=== PATIENT | female | born 1945 | race African-American/Black ===

== ENCOUNTER 2017-06-22 00:18 | Inpatient (IN) | payer MEDICARE, MEDICAID ==
[~2017-06-22] VITALS: Ht 167.6 cm; Wt 98.9 kg
[~2017-06-22 00:18] MED LIST: ALPR0.5T4; AMIT-188; AMLO10TA4; CALC600T2; GABA-529; LIP40; METH4TAB; ROPI0.252; TRAM50TA73
[2017-06-22] MEDS: MAGNESIUM/ALUMINUM HYDROXIDE/SIMETHICONE 30ML UDC PO NR (02:49)
[2017-06-22] MEDS: NITROGLYCERIN OINT 1GM/INCH UDPKT TD NR (02:49)
[2017-06-22 02:50] LABS: BASOPHILS % 0.8 % (0.0-2.0); EOSINOPHILS % 1.1 % (0.0-5.0); HEMATOCRIT. 30.1 % (36.0-48.0); HEMOGLOBIN. 10.2 g/dL (12.0-16.0); MEAN CORPUSCULAR HEMOGLOBIN 29.9 pg (28.0-32.0); MEAN CORPUSCULAR VOLUME 88.5 fL (81.0-99.0); MEAN PLATELET VOLUME 6.8 fl (7.4-10.4); MONOCYTES % 5.1 % (2.0-8.0); PLATELET 230 x1000/uL (130-400); RED CELL DISTRIBUTION WIDTH 14.5 % (11.6-14.6)
[2017-06-22 03:20] LABS: CARBON DIOXIDE 24 mEq/L (21-32); CHLORIDE 109 mEq/L (98-107); TROPONIN I < 0.02 ng/mL (0.00-0.04)
[2017-06-22 09:00] VITALS: BP 150/77
[2017-06-22 09:10] VITALS: BP 150/77
[2017-06-22] MEDS ORDERED: ROPI0.5T PO (09:52)
[2017-06-22] MEDS ORDERED: OMEP20CA10 PO (09:52)
[2017-06-22] MEDS ORDERED: FURO20TA4 PO (09:52)
[2017-06-22] MEDS ORDERED: SODI15OR4 PO (09:52)
[2017-06-22] MEDS ORDERED: DOCU-150 PO (09:52)
[2017-06-22] MEDS ORDERED: AMIT75TA2 PO (09:52)
[2017-06-22] MEDS ORDERED: GABA-533 PO (09:52)
[2017-06-22] MEDS ORDERED: THIO300C PO (09:52)
[2017-06-22] MEDS ORDERED: METH4TAB17 PO (09:52)
[2017-06-22] MEDS ORDERED: NAPR-681 PO (09:52)
[2017-06-22] MEDS ORDERED: HYDR-4001 PO (09:52)
[2017-06-22] MEDS ORDERED: BACL-141 PO (09:52)
[2017-06-22] MEDS ORDERED: SIMV10TA6 PO (09:52)
[2017-06-22] MEDS ORDERED: AMLO10TA80 PO (09:52)
[2017-06-22] MEDS ORDERED: ONDANSETRON HCL 4MG/2ML VIAL IV PRN (10:45)
[2017-06-22] MEDS ORDERED: ENOXAPARIN 30MG/0.3ML SYR SUBCUT SCH (11:00)
[2017-06-22] MEDS: ENOXAPARIN 40MG/0.4ML SYR SUBCUT SCH (11:15)
[2017-06-22] MEDS: ASPIRIN 81MG TABLET PO SCH (11:16)
[2017-06-22] MEDS: HYDROCODONE/ACETAMINOPHEN 5/325MG TABLET PO PRN ×3 (11:17→23:30)
[2017-06-22 12:16] VITALS: BP 127/78
[2017-06-22] MEDS ORDERED: REGADENOSON 0.4 MG/5 ML IV NR (13:15)
[2017-06-22 15:24] LABS: CREATINE KINASE 50 IU/L (26-192); CREATINE KINASE MB FRACTION < 0.5 ng/mL (0.5-3.6); HDL CHOLESTEROL 49 mg/dL (40-59); LDL CHOLESTEROL 130 mg/dL (5-100); TROPONIN I < 0.02 ng/mL (0.00-0.04)
[2017-06-22 16:18] VITALS: BP 136/73
[2017-06-22 20:00] VITALS: BP 105/67
[2017-06-22] MEDS: AMLODIPINE 5MG TABLET PO SCH (21:00)
[2017-06-22] MEDS ORDERED: ATORVASTATIN CALCIUM 10MG TABLET PO SCH (21:00)
[2017-06-22] MEDS: PANTOPRAZOLE 40MG DR TABLET PO SCH (21:37)
[2017-06-22 23:28] VITALS: BP 116/69
[2017-06-23 00:48] VITALS: BP 138/81
[2017-06-23 04:00] VITALS: BP 153/85
[2017-06-23 04:02] LABS: CLARITY URINE CLEAR (CLEAR); COLOR URINE YELLOW (YELLOW); GLUCOSE URINE NEGATIVE (NEGATIVE); KETONES URINE NEGATIVE (NEGATIVE); LEUKOCYTE ESTERASE URINE NEGATIVE (NEGATIVE); NITRITE URINE NEGATIVE (NEGATIVE); OCCULT BLOOD URINE NEGATIVE (NEGATIVE); PH URINE 5.5 (4.5-8.0); PROTEIN URINE NEGATIVE (NEGATIVE); SPECIFIC GRAVITY URINE 1.012 (1.005-1.030); UROBILINOGEN URINE 0.2 E.U./dL (0.2-1.0)
[2017-06-23] MEDS: PANTOPRAZOLE 40MG DR TABLET PO SCH (07:20)
[2017-06-23 07:40] LABS: BASOPHILS % 0.8 % (0.0-2.0); EOSINOPHILS % 2.3 % (0.0-5.0); HEMATOCRIT. 32.4 % (36.0-48.0); HEMOGLOBIN. 10.9 g/dL (12.0-16.0); MEAN CORPUSCULAR VOLUME 89.5 fL (81.0-99.0); MEAN PLATELET VOLUME 7.3 fl (7.4-10.4); MONOCYTES % 9.7 % (2.0-8.0); NEUTROPHILS % 66.2 % (40.0-76.0); PLATELET 242 x1000/uL (130-400); RED BLOOD CELL COUNT 3.62 mill/uL (4.2-5.4); RED CELL DISTRIBUTION WIDTH 14.6 % (11.6-14.6)
[2017-06-23 08:00] VITALS: BP 132/77
[2017-06-23] MEDS: ASPIRIN 81MG TABLET PO SCH (08:41)
[2017-06-23] MEDS: AMLODIPINE 5MG TABLET PO SCH (08:41)
[2017-06-23 08:56] LABS: CARBON DIOXIDE 26 mEq/L (21-32); CHLORIDE 107 mEq/L (98-107); TROPONIN I < 0.02 ng/mL (0.00-0.04)
[2017-06-23] MEDS ORDERED: ENOXAPARIN 40MG/0.4ML SYR SUBCUT SCH (09:00)
[2017-06-23] MEDS: ENOXAPARIN 40MG/0.4ML SYR SUBCUT SCH (09:00)
[2017-06-23] MEDS ORDERED: SODIUM POLYSTYRENE SULFONATE 15 G/60 ML BOT PO NR (09:45)
[2017-06-23 11:41] VITALS: BP 132/86
[2017-06-23] MEDS ORDERED: ACETAMINOPHEN 325MG TABLET PO PRN (13:15)
[2017-06-23 15:20] VITALS: BP 142/84
[2017-06-23 15:27] VITALS: BP 142/84
== END 2017-06-23 16:05 | disposition home or self-care (01) | DRG 206 ==
LOC: ER 00:18 → 6WST 06:19 → ENRESERV 07:11 → EDBEDREQ 08:21
PROVIDERS: ADMIT Hospitalist; ATTEND Hospitalist
DX: M94.0 Chondrocostal junction syndrome [Tietze] (principal); N17.9 Acute kidney failure, unspecified; E87.5 Hyperkalemia; M32.9 Systemic lupus erythematosus, unspecified; E88.09 Other disorders of plasma-protein metabolism, not elsewhere classified; N18.3 Chronic kidney disease, stage 3 (moderate); I25.10 Atherosclerotic heart disease of native coronary artery without angina pectoris; K20.9 Esophagitis, unspecified; E78.00 Pure hypercholesterolemia, unspecified; I13.10 Hypertensive heart and chronic kidney disease without heart failure, with stage 1 through stage 4 chronic kidney disease, or unspecified chronic kidney disease; E78.5 Hyperlipidemia, unspecified; M06.9 Rheumatoid arthritis, unspecified; K21.0 Gastro-esophageal reflux disease with esophagitis; T38.0X5A Adverse effect of glucocorticoids and synthetic analogues, initial encounter; T39.015A Adverse effect of aspirin, initial encounter; Y92.89 Other specified places as the place of occurrence of the external cause; I25.2 Old myocardial infarction; Z85.3 Personal history of malignant neoplasm of breast; Z90.710 Acquired absence of both cervix and uterus; Z87.891 Personal history of nicotine dependence; Z92.21 Personal history of antineoplastic chemotherapy; Z92.3 Personal history of irradiation; Z80.3 Family history of malignant neoplasm of breast; Z80.8 Family history of malignant neoplasm of other organs or systems
CPT/HCPCS: 36415; 71010; 78452; 80048; 80053; 80061; 81003; 82550; 82553; 83880; 84484; 85025; 93005; 93306; 93970; 99285; A9500; J1650

== ENCOUNTER 2019-04-04 06:48 | Emergency (ER) | payer MEDICARE, MEDICAID ==
[~2019-04-04] VITALS: Ht 167.6 cm; Wt 91.0 kg
[~2019-04-04 06:48] MED LIST changes: -ALPR0.5T4; -AMIT-188; -AMLO10TA4; +AMLO5TAB4 MT; +ASPI-1393 MT; +ATOR10TA MT; -CALC600T2; +DOCU-150 PO; -GABA-529; -LIP40; -METH4TAB; +OMEP20CA5 PO; -ROPI0.252; +SIMV10TA6 PO; -TRAM50TA73
[2019-04-04] MEDS ORDERED: FLUTICASONE PROPIONATE 50MCG/SPRAY BOTTLE BOTHNSTRLS STA (07:08)
[2019-04-04 09:23] VITALS: BP 214/77
== END 2019-04-04 09:32 | disposition home or self-care (01) ==
LOC: ER 06:48
DX: R09.81 Nasal congestion (principal); I11.9 Hypertensive heart disease without heart failure; G43.909 Migraine, unspecified, not intractable, without status migrainosus; E78.00 Pure hypercholesterolemia, unspecified; Z90.710 Acquired absence of both cervix and uterus; Z79.82 Long term (current) use of aspirin
CPT/HCPCS: 93005; 99283

== ENCOUNTER 2020-08-18 16:44 | Inpatient (IN) | payer MEDICARE, MEDICAID ==
[~2020-08-18] VITALS: Ht 167.6 cm; Wt 75.6 kg
[~2020-08-18 16:44] MED LIST changes: -ASPI-1393 MT; +ASPI-1497 MT; +OMEP20CA14 PO; -OMEP20CA5 PO; -SIMV10TA6 PO; +SIMV10TA97 PO
[2020-08-18] MEDS ORDERED: SODIUM CHLORIDE 0.9% 1,000 ML IV ONE ×2 (18:15→21:45)
[2020-08-18] MEDS ORDERED: ONDANSETRON HCL 4MG/2ML INJ IV STA (18:15)
[2020-08-18] MEDS ORDERED: PIPERACILLIN/TAZ 3.375G PREMIX 50 ML IV ONE (18:15)
[2020-08-18] MEDS ORDERED: VANCOMYCIN 1 G PREMIX 200 ML IV ONE (18:15)
[2020-08-18] MEDS ORDERED: MORPHINE SULFATE 4 MG/ML CPJ (NOT FOR IM USE) IV STA (18:15)
[2020-08-18 21:01] LABS: BASOPHILS % 1.3 % (0.0-2.0); EOSINOPHILS % 4.6 % (0.0-5.0); HEMATOCRIT. 30.4 % (36.0-48.0); HEMOGLOBIN. 10.1 g/dL (12.0-16.0); LYMPHOCYTES % 16.5 % (20.0-50.0); MEAN CORPUSCULAR HEMOGLOBIN 30.8 pg (28.0-32.0); MEAN CORPUSCULAR VOLUME 92.3 fL (81.0-99.0); MEAN PLATELET VOLUME 7.1 fl (7.4-10.4); MONOCYTES % 7.3 % (2.0-8.0); NEUTROPHILS % 70.3 % (40.0-76.0); PLATELET 419 x1000/uL (130-400); RED BLOOD CELL COUNT 3.29 mill/uL (4.2-5.4); RED CELL DISTRIBUTION WIDTH 15.6 % (11.6-14.6)
[2020-08-18 21:09] LABS: CHLORIDE 104 mEq/L (98-107)
[2020-08-18] MEDS ORDERED: DIPHENHYDRAMINE 50MG/ML VIAL IV PRN (23:30)
[2020-08-18] MEDS ORDERED: ONDANSETRON HCL 4MG/2ML INJ IV PRN (23:30)
[2020-08-18] MEDS ORDERED: DOCUSATE SODIUM 100MG CAPSULE PO PRN (23:30)
[2020-08-18] MEDS ORDERED: HYDROCODONE/APAP 7.5/325MG 1 TAB TABLET PO PRN (23:30)
[2020-08-18] MEDS ORDERED: GUAIFENESIN 200MG/10ML SUGAR FREE UDC PO PRN (23:30)
[2020-08-19] VITALS (8 sets, daily range): BP systolic 116–177; BP diastolic 69–84
[2020-08-19] MEDS ORDERED: SODIUM CHLORIDE 0.45% 1,000 ML IV SCH (00:30)
[2020-08-19] MEDS ORDERED: CEFTRIAXONE 1 G PREMIX 50 ML IV NR (00:30)
[2020-08-19] MEDS ORDERED: METRONIDAZOLE 500 MG PREMIX 100 ML IV SCH ×2 (02:00→12:00)
[2020-08-19] MEDS: ENOXAPARIN 30MG/0.3ML SYR SUBCUT SCH (04:00)
[2020-08-19] MEDS: AMLODIPINE 10MG TABLET PO SCH (09:00)
[2020-08-19] MEDS ORDERED: CLONIDINE 0.1MG TABLET PO PRN (09:00)
[2020-08-19] MEDS: NITROGLYCERIN OINT 1GM/INCH UDPKT TD SCH (11:00)
[2020-08-19 13:09] LABS: HEMATOCRIT. 28.1 % (36.0-48.0); HEMOGLOBIN. 9.3 g/dL (12.0-16.0); MEAN CORPUSCULAR HEMOGLOBIN 30.9 pg (28.0-32.0); MEAN CORPUSCULAR VOLUME 93.3 fL (81.0-99.0); RED BLOOD CELL COUNT 3.02 mill/uL (4.2-5.4); RED CELL DISTRIBUTION WIDTH 16.1 % (11.6-14.6)
[2020-08-19 13:19] LABS: CHLORIDE 106 mEq/L (98-107)
[2020-08-19] MEDS ORDERED: GABA-529 PO (13:24)
[2020-08-19] MEDS ORDERED: METH4TAB PO (13:26)
[2020-08-19 13:28] LABS: LDL CHOLESTEROL 179 mg/dL (5-100)
[2020-08-19] MEDS ORDERED: AMIT25TA9 MT (13:28)
[2020-08-19 13:29] LABS: HDL CHOLESTEROL 15 mg/dL (40-59)
[2020-08-19] MEDS ORDERED: METO-385 PO (13:30)
[2020-08-19] MEDS ORDERED: ASPI-1497 PO (13:31)
[2020-08-19] MEDS ORDERED: SIMV-43 PO (13:31)
[2020-08-19] MEDS ORDERED: ALLO100T PO (13:32)
[2020-08-19] MEDS ORDERED: FURO20TA4 PO (13:32)
[2020-08-19] MEDS ORDERED: OMEP20CA14 PO (13:33)
[2020-08-19] MEDS ORDERED: IBUP-2029 PO (13:34)
[2020-08-19] MEDS ORDERED: ESOM40CA PO (13:34)
[2020-08-19] MEDS ORDERED: MINERAL OIL ENEMA 133ML PR SCH ×2 (14:00→16:00)
[2020-08-19] MEDS ORDERED: TORS5TAB11 PO (14:05)
[2020-08-19] MEDS: METRONIDAZOLE 500 MG PREMIX 100 ML IV SCH (17:30)
[2020-08-19 17:31] LABS: CLARITY URINE CLOUDY (CLEAR); COLOR URINE DARK YELLOW (YELLOW); KETONES URINE TRACE (NEGATIVE); LEUKOCYTE ESTERASE URINE 2+ (NEGATIVE); NITRITE URINE POSITIVE (NEGATIVE); OCCULT BLOOD URINE TRACE (NEGATIVE); PH URINE 5.5 (4.5-8.0); PROTEIN URINE 2+ (NEGATIVE)
[2020-08-19 17:56] LABS: INR 1.3; PARTIAL THROMBOPLASTIN TIME 34.7 sec (23.4-31.0); PROTHROMBIN TIME 13.3 sec (9.6-11.0)
[2020-08-19] MEDS ORDERED: METOCLOPRAMIDE HCL 10MG/2ML VIAL IV SCH (18:00)
[2020-08-19] MEDS: METOCLOPRAMIDE HCL 10MG/2ML VIAL IV SCH (18:09)
[2020-08-19] MEDS: DEXT 5%/0.45% NACL 1000ML 1,000 ML IV SCH (18:10)
[2020-08-20] VITALS (12 sets, daily range): BP systolic 125–166; BP diastolic 59–106
[2020-08-20] MEDS: CEFTRIAXONE 1,000 MG in DEXTROSE 5% WATER 50 ML IV SCH ×2
[2020-08-20] MEDS: METRONIDAZOLE 500 MG PREMIX 100 ML IV SCH ×3 (03:57→18:45)
[2020-08-20] MEDS: HYDRALAZINE 20MG/ML VIAL IV PRN (04:08)
[2020-08-20] MEDS: DEXT 5%/0.45% NACL 1000ML 1,000 ML IV SCH ×2 (05:35→20:10)
[2020-08-20] MEDS: METOCLOPRAMIDE HCL 10MG/2ML VIAL IV SCH ×4 (05:35→18:45)
[2020-08-20] MEDS ORDERED: LIDOCAINE HCL 1% 20ML VIAL (Pyxis) INJ ONE (08:20)
[2020-08-20] MEDS ORDERED: SODIUM BICARBONATE 4% (2.4MEQ) 5ML VIAL IV ONE (08:20)
[2020-08-20] MEDS ORDERED: CEFTRIAXONE 1,000 MG in DEXTROSE 5% WATER 50 ML IV SCH (09:00)
[2020-08-20] MEDS: PANTOPRAZOLE SODIUM 40 MG/VIAL IV SCH (11:03)
[2020-08-20] MEDS: NITROGLYCERIN OINT 1GM/INCH UDPKT TD SCH (11:07)
[2020-08-20] MEDS: AMLODIPINE 10MG TABLET PO SCH (11:07)
[2020-08-20] MEDS: ENOXAPARIN 30MG/0.3ML SYR SUBCUT SCH (11:09)
[2020-08-20] MEDS: LACTULOSE 20G/30ML UDC PO SCH (21:31)
[2020-08-21] VITALS (11 sets, daily range): BP systolic 142–160; BP diastolic 73–87
[2020-08-21] MEDS: METOCLOPRAMIDE HCL 10MG/2ML VIAL IV SCH ×4 (00:10→17:43)
[2020-08-21] MEDS: CEFTRIAXONE 1,000 MG in DEXTROSE 5% WATER 50 ML IV SCH (00:10)
[2020-08-21] MEDS: METRONIDAZOLE 500 MG PREMIX 100 ML IV SCH ×3 (01:11→17:43)
[2020-08-21] MEDS: LACTULOSE 20G/30ML UDC PO SCH ×3 (05:12→21:22)
[2020-08-21] MEDS: PANTOPRAZOLE SODIUM 40 MG/VIAL IV SCH (08:11)
[2020-08-21] MEDS: ENOXAPARIN 30MG/0.3ML SYR SUBCUT SCH (08:14)
[2020-08-21] MEDS: AMLODIPINE 10MG TABLET PO SCH (08:14)
[2020-08-21] MEDS: NITROGLYCERIN OINT 1GM/INCH UDPKT TD SCH (08:15)
[2020-08-21] MEDS: DEXT 5%/0.45% NACL 1000ML 1,000 ML IV SCH (08:15)
[2020-08-21] MEDS: HYDRALAZINE 20MG/ML VIAL IV PRN (14:56)
[2020-08-22] VITALS (9 sets, daily range): BP systolic 150–179; BP diastolic 83–94
[2020-08-22] MEDS: CEFTRIAXONE 1,000 MG in DEXTROSE 5% WATER 50 ML IV SCH (00:35)
[2020-08-22] MEDS: METOCLOPRAMIDE HCL 10MG/2ML VIAL IV SCH ×4 (00:35→17:30)
[2020-08-22] MEDS: METRONIDAZOLE 500 MG PREMIX 100 ML IV SCH ×3 (02:33→17:31)
[2020-08-22] MEDS: HYDRALAZINE 20MG/ML VIAL IV PRN (02:33)
[2020-08-22] MEDS: LACTULOSE 20G/30ML UDC PO SCH ×3 (05:46→22:00)
[2020-08-22 06:18] LABS: BASOPHILS % 0.7 % (0.0-2.0); EOSINOPHILS % 6.8 % (0.0-5.0); HEMATOCRIT. 27.4 % (36.0-48.0); HEMOGLOBIN. 9.2 g/dL (12.0-16.0); LYMPHOCYTES % 18.7 % (20.0-50.0); MEAN CORPUSCULAR HEMOGLOBIN 30.7 pg (28.0-32.0); MEAN CORPUSCULAR VOLUME 91.3 fL (81.0-99.0); MEAN PLATELET VOLUME 7.1 fl (7.4-10.4); MONOCYTES % 8.4 % (2.0-8.0); NEUTROPHILS % 65.4 % (40.0-76.0); PLATELET 347 x1000/uL (130-400); RED CELL DISTRIBUTION WIDTH 15.7 % (11.6-14.6)
[2020-08-22 06:50] LABS: CHLORIDE 108 mEq/L (98-107)
[2020-08-22 07:00] LABS: AMYLASE 50 IU/L (25-115)
[2020-08-22 07:01] LABS: PHOSPHORUS 2.1 mg/dL (2.5-4.9)
[2020-08-22] MEDS: DEXT 5%/0.45% NACL 1000ML 1,000 ML IV SCH (08:50)
[2020-08-22] MEDS: PANTOPRAZOLE SODIUM 40 MG/VIAL IV SCH (08:50)
[2020-08-22] MEDS: ENOXAPARIN 30MG/0.3ML SYR SUBCUT SCH (08:51)
[2020-08-22] MEDS: AMLODIPINE 10MG TABLET PO SCH (08:51)
[2020-08-22] MEDS: NITROGLYCERIN OINT 1GM/INCH UDPKT TD SCH (08:52)
[2020-08-22] MEDS ORDERED: POTASSIUM CHLORIDE 20MEQ TABLET SR PO NR (15:26)
[2020-08-22] MEDS ORDERED: MAGNESIUM 2 G PREMIX 50 ML IV NR (16:30)
[2020-08-22] MEDS ORDERED: POTASSIUM PHOS,M-BASIC-D-BASIC 15 MMOL in DEXT 5% WATER 245 ML IV NR (16:30)
[2020-08-23] VITALS: BP 167/88
[2020-08-23] MEDS: CEFTRIAXONE 1,000 MG in DEXTROSE 5% WATER 50 ML IV SCH (00:30)
[2020-08-23] MEDS: METOCLOPRAMIDE HCL 10MG/2ML VIAL IV SCH ×3 (00:31→13:30)
[2020-08-23] MEDS: DEXT 5%/0.45% NACL 1000ML 1,000 ML IV SCH ×2 (00:31→14:20)
[2020-08-23] MEDS: METRONIDAZOLE 500 MG PREMIX 100 ML IV SCH ×2 (02:34→09:39)
[2020-08-23 04:00] VITALS: BP 161/92
[2020-08-23] MEDS: LACTULOSE 20G/30ML UDC PO SCH ×2 (05:20→13:38)
[2020-08-23 06:56] LABS: BASOPHILS % 0.9 % (0.0-2.0); EOSINOPHILS % 8.2 % (0.0-5.0); HEMATOCRIT. 24.8 % (36.0-48.0); HEMOGLOBIN. 8.3 g/dL (12.0-16.0); LYMPHOCYTES % 23.2 % (20.0-50.0); MEAN CORPUSCULAR HEMOGLOBIN 31.2 pg (28.0-32.0); MEAN CORPUSCULAR VOLUME 92.9 fL (81.0-99.0); MEAN PLATELET VOLUME 6.9 fl (7.4-10.4); MONOCYTES % 8.9 % (2.0-8.0); NEUTROPHILS % 58.8 % (40.0-76.0); PLATELET 356 x1000/uL (130-400); RED BLOOD CELL COUNT 2.67 mill/uL (4.2-5.4); RED CELL DISTRIBUTION WIDTH 16.1 % (11.6-14.6)
[2020-08-23 07:00] LABS: PHOSPHORUS 2.3 mg/dL (2.5-4.9)
[2020-08-23] MEDS ORDERED: POTASSIUM CHLORIDE 20MEQ TABLET SR PO SCH (09:00)
[2020-08-23] MEDS: ENOXAPARIN 30MG/0.3ML SYR SUBCUT SCH (09:24)
[2020-08-23] MEDS: NITROGLYCERIN OINT 1GM/INCH UDPKT TD SCH (09:26)
[2020-08-23] MEDS: PANTOPRAZOLE SODIUM 40 MG/VIAL IV SCH (09:27)
[2020-08-23] MEDS: AMLODIPINE 10MG TABLET PO SCH (09:27)
[2020-08-23] MEDS ORDERED: METOPROLOL TARTRATE 50MG TABLET PO SCH (14:00)
[2020-08-23 14:55] VITALS: BP 162/84
== END 2020-08-23 18:54 | disposition home or self-care (01) | DRG 435 ==
LOC: ER 16:44 → 5EST 18:35 → CANRESERV 08-19 04:37 → ENRESERV 08-19 04:37
PROVIDERS: ADMIT Family Medicine; ATTEND Family Medicine
PROC: 02HV33Z Insertion of Infusion Device into Superior Vena Cava, Percutaneous Approach (ICD-10-PCS; principal; 2020-08-20)
PROC: B5181ZA Fluoroscopy of Superior Vena Cava using Low Osmolar Contrast, Guidance (ICD-10-PCS; 2020-08-20)
PROC: B548ZZA Ultrasonography of Superior Vena Cava, Guidance (ICD-10-PCS; 2020-08-20)
DX: C25.9 Malignant neoplasm of pancreas, unspecified (principal); G93.41 Metabolic encephalopathy; I50.43 Acute on chronic combined systolic (congestive) and diastolic (congestive) heart failure; K85.90 Acute pancreatitis without necrosis or infection, unspecified; I13.0 Hypertensive heart and chronic kidney disease with heart failure and stage 1 through stage 4 chronic kidney disease, or unspecified chronic kidney disease; C22.9 Malignant neoplasm of liver, not specified as primary or secondary; E44.1 Mild protein-calorie malnutrition; N17.9 Acute kidney failure, unspecified; D64.9 Anemia, unspecified; N18.9 Chronic kidney disease, unspecified; M06.9 Rheumatoid arthritis, unspecified; G43.909 Migraine, unspecified, not intractable, without status migrainosus; I50.9 Heart failure, unspecified; E78.5 Hyperlipidemia, unspecified; K21.9 Gastro-esophageal reflux disease without esophagitis; E78.00 Pure hypercholesterolemia, unspecified; I25.10 Atherosclerotic heart disease of native coronary artery without angina pectoris; I71.4 Abdominal aortic aneurysm, without rupture; J44.9 Chronic obstructive pulmonary disease, unspecified; K57.30 Diverticulosis of large intestine without perforation or abscess without bleeding; E66.9 Obesity, unspecified; K80.20 Calculus of gallbladder without cholecystitis without obstruction; K59.03 Drug induced constipation; M62.50 Muscle wasting and atrophy, not elsewhere classified, unspecified site; M10.9 Gout, unspecified; M81.0 Age-related osteoporosis without current pathological fracture; T40.2X5A Adverse effect of other opioids, initial encounter; Y92.89 Other specified places as the place of occurrence of the external cause; Z85.05 Personal history of malignant neoplasm of liver; Z92.21 Personal history of antineoplastic chemotherapy; Z92.3 Personal history of irradiation; Z85.07 Personal history of malignant neoplasm of pancreas; Z85.3 Personal history of malignant neoplasm of breast; Z90.710 Acquired absence of both cervix and uterus; Z79.899 Other long term (current) drug therapy; Z68.26 Body mass index [BMI] 26.0-26.9, adult; D72.829 Elevated white blood cell count, unspecified; Z96.89 Presence of other specified functional implants
CPT/HCPCS: 36415; 36573; 71045; 74018; 74176; 74181; 76700; 80048; 80053; 80061; 80076; 81003; 82140; 82150; 82247; 82248; 82270; 82962; 83605; 83735; 83880; 84075; 84100; 84443; 84450; 84460; 84484; 85025; 86301; 86850; 86900; 87426; 92610; 93005; 97116; 97162; 97530; 99285; C1725; C1769; C9113; J0360; J0696; J1650; J2270; J2405; J2543; J2765; J3370; J3475; J3490; J7030; J7060; A4315

== ENCOUNTER 2020-11-26 07:29 | Inpatient (IN) | payer MEDICARE, MEDICAID ==
[~2020-11-26] VITALS: Ht 172.7 cm; Wt 71.7 kg
[~2020-11-26 07:29] MED LIST changes: +ALLO100T PO; +AMIT25TA9 MT; +ASPI-1497 PO; +ESOM40CA PO; +FURO20TA4 PO; +GABA-529 PO; +IBUP-2029 PO; +METH4TAB PO; +METO-385 PO; +SIMV-43 PO; +TORS5TAB11 PO
[2020-11-26] MEDS ORDERED: PHENYTOIN SODIUM 1,000 MG in SODIUM CHLORIDE 0.9% 100 ML IV ONE (08:15)
[2020-11-26 08:46] LABS: HEMATOCRIT. 30.9 % (36.0-48.0); HEMOGLOBIN. 10.2 g/dL (12.0-16.0); MEAN CORPUSCULAR HEMOGLOBIN 29.4 pg (28.0-32.0); MEAN CORPUSCULAR VOLUME 89.5 fL (81.0-99.0); MEAN PLATELET VOLUME 6.7 fl (7.4-10.4); PLATELET 309 x1000/uL (130-400); RED BLOOD CELL COUNT 3.46 mill/uL (4.2-5.4); RED CELL DISTRIBUTION WIDTH 16.9 % (11.6-14.6)
[2020-11-26 08:51] LABS: CHLORIDE 104 mEq/L (98-107)
[2020-11-26 08:56] LABS: INR 1.1; PROTHROMBIN TIME 11.9 sec (9.6-11.0)
[2020-11-26] MEDS ORDERED: IOHEXOL-350 100 ML BOTTLE ONE (08:57)
[2020-11-26 09:00] LABS: ETHANOL BLOOD < 10 mg/dL
[2020-11-26 09:10] LABS: CLARITY URINE CLEAR (CLEAR); COLOR URINE YELLOW (YELLOW); KETONES URINE NEGATIVE (NEGATIVE); LEUKOCYTE ESTERASE URINE NEGATIVE (NEGATIVE); NITRITE URINE NEGATIVE (NEGATIVE); OCCULT BLOOD URINE 2+ (NEGATIVE); PROTEIN URINE 3+ (NEGATIVE); SPECIFIC GRAVITY URINE 1.015 (1.005-1.030); UROBILINOGEN URINE 0.2 E.U./dL (0.2-1.0)
[2020-11-26 09:49] LABS: LDL CHOLESTEROL 78 mg/dL (5-100)
[2020-11-26 09:51] LABS: *AMPHETAMINES SCREEN URINE NEGATIVE (NEGATIVE); *BARBITURATES SCREEN URINE NEGATIVE (NEGATIVE); *BENZODIAZEPINES SCREEN URINE NEGATIVE (NEGATIVE); CANNABINOID URINE SCREEN NEGATIVE (NEGATIVE)
[2020-11-26 09:52] LABS: *COCAINE SCREEN URINE NEGATIVE (NEGATIVE); METHADONE URINE SCREEN NEGATIVE (NEGATIVE); OPIATES URINE SCREEN NEGATIVE (NEGATIVE); PHENCYCLIDINE URINE SCREEN NEGATIVE (NEGATIVE)
[2020-11-26 10:20] LABS: PLATELET ESTIMATE NORMAL
[2020-11-26] MEDS ORDERED: POTASSIUM CHLORIDE INJ 40 MEQ in DEXT 5% WATER 500 ML IV ONE (10:30)
[2020-11-26] MEDS ORDERED: ENOXAPARIN 40MG/0.4ML SYR SUBCUT SCH (12:30)
[2020-11-26] MEDS ORDERED: GUAIFENESIN 200MG/10ML SUGAR FREE UDC PO PRN (12:30)
[2020-11-26] MEDS ORDERED: MAGNESIUM/ALUMINUM HYDROXIDE/SIMETHICONE 30ML UDC PO PRN (12:30)
[2020-11-26] MEDS ORDERED: LORAZEPAM 2MG/ML CPJ IV PRN (12:30)
[2020-11-26] MEDS ORDERED: DOCUSATE SODIUM 100MG CAPSULE PO PRN (12:30)
[2020-11-26] MEDS ORDERED: ACETAMINOPHEN 325MG TABLET PO PRN (12:30)
[2020-11-26] MEDS ORDERED: CLONIDINE 0.1MG TABLET PO PRN (12:30)
[2020-11-26] MEDS ORDERED: ONDANSETRON HCL 4MG/2ML INJ IV PRN (12:30)
[2020-11-26] MEDS: AMLODIPINE 10MG TABLET PO SCH (12:47)
[2020-11-26] MEDS: DEXT 5%/0.45% NACL KCL 10MEQ/L 1,000 ML IV SCH (14:02)
[2020-11-26] MEDS: ENOXAPARIN 30MG/0.3ML SYR SUBCUT SCH (14:06)
[2020-11-26] MEDS: HYDRALAZINE 20MG/ML VIAL IV PRN (15:23)
[2020-11-26] MEDS: ATORVASTATIN CALCIUM 40MG TABLET PO SCH (21:00)
[2020-11-26 21:35] VITALS: BP 149/103
[2020-11-26] MEDS: LEVETIRACETAM 500MG PREMIX 100 ML IV SCH (23:58)
[2020-11-27] VITALS (7 sets, daily range): BP systolic 129–199; BP diastolic 68–111
[2020-11-27] MEDS: HYDRALAZINE 20MG/ML VIAL IV PRN (01:13)
[2020-11-27] MEDS: DEXT 5%/0.45% NACL KCL 10MEQ/L 1,000 ML IV SCH ×3 (01:18→22:17)
[2020-11-27 06:16] LABS: HEMATOCRIT. 31.7 % (36.0-48.0); HEMOGLOBIN. 10.8 g/dL (12.0-16.0); MEAN CORPUSCULAR VOLUME 87.8 fL (81.0-99.0); PLATELET 321 x1000/uL (130-400); RED BLOOD CELL COUNT 3.61 mill/uL (4.2-5.4)
[2020-11-27 06:27] LABS: CHLORIDE 105 mEq/L (98-107)
[2020-11-27] MEDS: ENOXAPARIN 30MG/0.3ML SYR SUBCUT SCH (08:53)
[2020-11-27] MEDS: AMLODIPINE 10MG TABLET PO SCH (08:53)
[2020-11-27] MEDS: PANTOPRAZOLE SODIUM 40 MG/VIAL IV SCH (10:50)
[2020-11-27] MEDS: LEVETIRACETAM 500MG PREMIX 100 ML IV SCH ×2 (10:51→22:57)
[2020-11-27] MEDS: ENALAPRIL 2.5MG/2ML VIAL 2ML IV SCH ×2 (11:37→18:29)
[2020-11-27 13:51] LABS: PLATELET ESTIMATE NORMAL
[2020-11-27] MEDS: ATORVASTATIN CALCIUM 40MG TABLET PO SCH (21:00)
[2020-11-28] VITALS: BP 153/71
[2020-11-28] MEDS: ENALAPRIL 2.5MG/2ML VIAL 2ML IV SCH ×3 (00:03→13:17)
[2020-11-28 04:00] VITALS: BP 166/79
[2020-11-28] MEDS: HYDRALAZINE 20MG/ML VIAL IV PRN ×2 (04:22→10:34)
[2020-11-28 06:02] LABS: CHLORIDE 106 mEq/L (98-107)
[2020-11-28 06:18] LABS: BASOPHILS % 0.6 % (0.0-2.0); EOSINOPHILS % 0.5 % (0.0-5.0); HEMATOCRIT. 30.1 % (36.0-48.0); HEMOGLOBIN. 9.7 g/dL (12.0-16.0); LYMPHOCYTES % 12.1 % (20.0-50.0); MEAN CORPUSCULAR HEMOGLOBIN 29.2 pg (28.0-32.0); MEAN CORPUSCULAR VOLUME 90.3 fL (81.0-99.0); MONOCYTES % 4.5 % (2.0-8.0); NEUTROPHILS % 82.3 % (40.0-76.0); PLATELET 285 x1000/uL (130-400); RED BLOOD CELL COUNT 3.34 mill/uL (4.2-5.4)
[2020-11-28 08:17] VITALS: BP 164/63
[2020-11-28] MEDS: AMLODIPINE 10MG TABLET PO SCH (08:24)
[2020-11-28] MEDS: LEVETIRACETAM 500MG PREMIX 100 ML IV SCH (10:12)
[2020-11-28] MEDS: PANTOPRAZOLE SODIUM 40 MG/VIAL IV SCH (10:12)
[2020-11-28] MEDS: DEXT 5%/0.45% NACL KCL 10MEQ/L 1,000 ML IV SCH ×2 (10:13→23:39)
[2020-11-28] MEDS ORDERED: OMEPRAZOLE 20MG CAPSULE EXTENDED RELEASE PO SCH (10:45)
[2020-11-28 11:28] VITALS: BP 166/74
[2020-11-28 15:36] VITALS: BP 165/77
[2020-11-28] MEDS: ENOXAPARIN 30MG/0.3ML SYR SUBCUT SCH (17:50)
[2020-11-28] MEDS: ENALAPRIL 1.25MG/ML VIAL 1ML IV SCH ×2 (19:29→23:39)
[2020-11-28 20:00] VITALS: BP 169/93
[2020-11-28] MEDS: AMITRIPTYLINE 25MG TABLET PO SCH (21:52)
[2020-11-28] MEDS: METOPROLOL TARTRATE 50MG TABLET PO SCH (21:52)
[2020-11-28] MEDS: LEVETIRACETAM 500MG/5ML CUP PO SCH (21:53)
[2020-11-29] VITALS (9 sets, daily range): BP systolic 135–203; BP diastolic 67–104
[2020-11-29] MEDS: HYDRALAZINE 20MG/ML VIAL IV PRN (00:47)
[2020-11-29] MEDS: ENALAPRIL 1.25MG/ML VIAL 1ML IV SCH ×3 (05:53→18:11)
[2020-11-29] MEDS: ATORVASTATIN CALCIUM 10MG TABLET PO SCH (09:14)
[2020-11-29] MEDS: AMLODIPINE 10MG TABLET PO SCH (09:14)
[2020-11-29] MEDS: METOPROLOL TARTRATE 50MG TABLET PO SCH ×2 (09:15→21:00)
[2020-11-29] MEDS: FAMOTIDINE 20MG/2ML VIAL IV SCH (09:15)
[2020-11-29] MEDS: LEVETIRACETAM 500MG/5ML CUP PO SCH ×2 (09:17→22:08)
[2020-11-29 10:13] LABS: BASOPHILS % 0.8 % (0.0-2.0); EOSINOPHILS % 1.3 % (0.0-5.0); HEMATOCRIT. 27.2 % (36.0-48.0); HEMOGLOBIN. 9.1 g/dL (12.0-16.0); LYMPHOCYTES % 16.2 % (20.0-50.0); MEAN CORPUSCULAR HEMOGLOBIN 29.9 pg (28.0-32.0); MEAN CORPUSCULAR VOLUME 88.8 fL (81.0-99.0); MEAN PLATELET VOLUME 6.8 fl (7.4-10.4); MONOCYTES % 7.9 % (2.0-8.0); NEUTROPHILS % 73.8 % (40.0-76.0); PLATELET 292 x1000/uL (130-400); RED BLOOD CELL COUNT 3.06 mill/uL (4.2-5.4); RED CELL DISTRIBUTION WIDTH 17.5 % (11.6-14.6)
[2020-11-29] MEDS: MAGNESIUM OXIDE 400MG TABLET PO SCH (11:34)
[2020-11-29] MEDS: ENOXAPARIN 30MG/0.3ML SYR SUBCUT SCH (18:12)
[2020-11-29] MEDS: AMITRIPTYLINE 25MG TABLET PO SCH (22:09)
[2020-11-30] VITALS (7 sets, daily range): BP systolic 147–190; BP diastolic 63–89
[2020-11-30] MEDS: ENALAPRIL 1.25MG/ML VIAL 1ML IV SCH ×4 (00:17→17:53)
[2020-11-30] MEDS: ATORVASTATIN CALCIUM 10MG TABLET PO SCH (08:55)
[2020-11-30] MEDS: LEVETIRACETAM 500MG/5ML CUP PO SCH ×2 (08:55→20:44)
[2020-11-30] MEDS: METOPROLOL TARTRATE 50MG TABLET PO SCH ×2 (08:55→20:44)
[2020-11-30] MEDS: MAGNESIUM OXIDE 400MG TABLET PO SCH (08:56)
[2020-11-30] MEDS: AMLODIPINE 10MG TABLET PO SCH ×2 (08:56→17:53)
[2020-11-30] MEDS: FAMOTIDINE 20MG/2ML VIAL IV SCH (08:56)
[2020-11-30] MEDS: ASPIRIN 81MG TABLET PO SCH (12:52)
[2020-11-30] MEDS: CLOPIDOGREL 75MG TABLET PO SCH (12:52)
[2020-11-30] MEDS: ENOXAPARIN 30MG/0.3ML SYR SUBCUT SCH (15:13)
[2020-11-30] MEDS: AMITRIPTYLINE 25MG TABLET PO SCH (20:43)
[2020-11-30] MEDS: ATORVASTATIN CALCIUM 40MG TABLET PO SCH (20:44)
[2020-12-01] VITALS (7 sets, daily range): BP systolic 102–170; BP diastolic 64–87
[2020-12-01] MEDS: ENALAPRIL 1.25MG/ML VIAL 1ML IV SCH ×4 (06:06→17:24)
[2020-12-01] MEDS: LEVETIRACETAM 500MG/5ML CUP PO SCH ×2 (08:52→21:54)
[2020-12-01] MEDS: AMLODIPINE 10MG TABLET PO SCH ×2 (08:53→17:24)
[2020-12-01] MEDS: FAMOTIDINE 20MG/2ML VIAL IV SCH (08:53)
[2020-12-01] MEDS: MAGNESIUM OXIDE 400MG TABLET PO SCH (08:53)
[2020-12-01] MEDS: METOPROLOL TARTRATE 50MG TABLET PO SCH ×2 (08:53→21:56)
[2020-12-01] MEDS: ASPIRIN 81MG TABLET PO SCH (08:56)
[2020-12-01] MEDS: CLOPIDOGREL 75MG TABLET PO SCH (08:56)
[2020-12-01] MEDS: ENOXAPARIN 30MG/0.3ML SYR SUBCUT SCH (14:12)
[2020-12-01] MEDS: AMITRIPTYLINE 25MG TABLET PO SCH (21:53)
[2020-12-01] MEDS: ATORVASTATIN CALCIUM 40MG TABLET PO SCH (21:54)
[2020-12-02] VITALS: BP 154/74
[2020-12-02] MEDS: ENALAPRIL 1.25MG/ML VIAL 1ML IV SCH ×4 (00:01→17:16)
[2020-12-02 04:00] VITALS: BP 147/67
[2020-12-02 07:50] VITALS: BP 154/67
[2020-12-02] MEDS: MAGNESIUM OXIDE 400MG TABLET PO SCH (09:02)
[2020-12-02] MEDS: METOPROLOL TARTRATE 50MG TABLET PO SCH (09:03)
[2020-12-02] MEDS: FAMOTIDINE 20MG/2ML VIAL IV SCH (09:03)
[2020-12-02] MEDS: ASPIRIN 81MG TABLET PO SCH (09:03)
[2020-12-02] MEDS: AMLODIPINE 10MG TABLET PO SCH ×2 (09:03→16:27)
[2020-12-02] MEDS: CLOPIDOGREL 75MG TABLET PO SCH (09:03)
[2020-12-02] MEDS: LEVETIRACETAM 500MG/5ML CUP PO SCH (09:10)
[2020-12-02 11:49] VITALS: BP 139/66
[2020-12-02 11:59] VITALS: BP 101/49
[2020-12-02] MEDS: ENOXAPARIN 30MG/0.3ML SYR SUBCUT SCH (14:36)
[2020-12-02 15:41] VITALS: BP 151/66
== END 2020-12-02 19:56 | DRG 64 ==
LOC: ER 07:29 → 6WST 10:19 → ENRESERV 19:52
PROVIDERS: ADMIT Hospitalist; ATTEND Hospitalist
PROC: 4A10X4Z Monitoring of Central Nervous Electrical Activity, External Approach (ICD-10-PCS; principal; 2020-11-26)
DX: I63.9 Cerebral infarction, unspecified (principal); E43 Unspecified severe protein-calorie malnutrition; N17.9 Acute kidney failure, unspecified; E78.00 Pure hypercholesterolemia, unspecified; E87.6 Hypokalemia; I12.9 Hypertensive chronic kidney disease with stage 1 through stage 4 chronic kidney disease, or unspecified chronic kidney disease; N18.9 Chronic kidney disease, unspecified; E23.6 Other disorders of pituitary gland; E78.5 Hyperlipidemia, unspecified; I25.10 Atherosclerotic heart disease of native coronary artery without angina pectoris; G43.909 Migraine, unspecified, not intractable, without status migrainosus; I65.21 Occlusion and stenosis of right carotid artery; G62.9 Polyneuropathy, unspecified; C67.9 Malignant neoplasm of bladder, unspecified; R73.9 Hyperglycemia, unspecified; R00.0 Tachycardia, unspecified; G31.9 Degenerative disease of nervous system, unspecified; Z90.710 Acquired absence of both cervix and uterus; Z68.24 Body mass index [BMI] 24.0-24.9, adult; Z20.822 Contact with and (suspected) exposure to COVID-19; Z85.07 Personal history of malignant neoplasm of pancreas; G40.901 Epilepsy, unspecified, not intractable, with status epilepticus; R62.7 Adult failure to thrive; E23.7 Disorder of pituitary gland, unspecified
CPT/HCPCS: 36415; 70496; 70498; 70551; 71045; 80048; 80053; 80061; 80185; 80305; 80320; 81003; 82550; 83036; 83721; 83735; 84484; 85025; 87426; 92610; 93005; 93970; 95816; 97162; 97166; 97168; 97530; 99291; C9113; J0360; J1165; J1650; J1953; J2405; J3480; J3490; J7050; J7060; Q9967; A4315; G0480